=== PATIENT | female | born 1980 | race Caucasian/White ===

== ENCOUNTER 2016-10-17 08:56 | Emergency (ER) | payer MEDICAID ==
[2016-10-17 12:15] VITALS: BP 121/74
== END 2016-10-17 12:15 | disposition home or self-care (01) ==
LOC: ED 08:56
DX: N39.0 Urinary tract infection, site not specified (principal); M54.5 Low back pain; K64.9 Unspecified hemorrhoids; I10 Essential (primary) hypertension

== ENCOUNTER 2018-04-23 10:00 | Emergency (ER) | payer MEDICAID ==
[~2018-04-23] VITALS: Ht 157.5 cm; Wt 62.6 kg
[2018-04-23 10:08] VITALS: BP 110/73; Ht 157.5 cm; Wt 62.6 kg
== END 2018-04-23 10:26 | disposition home or self-care (01) ==
LOC: ED 10:00
DX: N39.0 Urinary tract infection, site not specified (principal); I10 Essential (primary) hypertension; Z88.0 Allergy status to penicillin

== ENCOUNTER 2019-04-20 09:07 | Emergency (ER) | payer MEDICAID ==
[~2019-04-20] VITALS: Ht 157.5 cm; Wt 68.9 kg
[2019-04-20 09:28] VITALS: Ht 157.5 cm; Wt 68.9 kg
[2019-04-20 10:50] VITALS: BP 101/74
== END 2019-04-20 10:50 | disposition home or self-care (01) ==
LOC: ED 09:07
DX: J06.9 Acute upper respiratory infection, unspecified (principal); T36.4X5A Adverse effect of tetracyclines, initial encounter; Y92.89 Other specified places as the place of occurrence of the external cause